=== PATIENT | female | born 1955 | race Caucasian/White ===

== ENCOUNTER 2017-06-21 20:28 | Observation (INO) | payer OTHER ==
[~2017-06-21] VITALS: Ht 161.3 cm; Wt 69.3 kg
[2017-06-21 20:30] VITALS: BP 135/66; PULSE 78; RESP 18; TEMP 98.4; O2SAT 97
[2017-06-21 20:50] VITALS: BP 133/61; PULSE 53; RESP 18; O2SAT 97
[2017-06-21 20:54] LABS: AUTOMATED NEUTROPHIL # 3.9 TH/MM3 (1.8-7.7); BASOPHIL # 0.1 TH/MM3 (0-0.2); BASOPHIL % 0.8 % (0.0-2.0); EOSINOPHIL # 0.3 TH/MM3 (0-0.4); EOSINOPHIL % 3.5 % (0.0-4.0); HEMATOCRIT 37.2 % (35.0-46.0); HEMOGLOBIN 12.7 GM/DL (11.6-15.3); LYMPH % 35.8 % (9.0-44.0); LYMPHOCYTE # 2.7 TH/MM3 (1.0-4.8); MEAN CELL VOLUME 92.5 FL (80.0-100.0); MEAN CORPUSCULAR HEMOGLOBIN 31.5 PG (27.0-34.0); MEAN CORPUSCULAR HGB CONC 34.1 % (32.0-36.0); MONO % 7.9 % (0.0-8.0); MONOCYTE # 0.6 TH/MM3 (0-0.9); PLATELET COUNT 294 TH/MM3 (150-450); RED BLOOD COUNT 4.02 MIL/MM3 (4.00-5.30); RED CELL DISTRIBUTION WIDTH 12.9 % (11.6-17.2); WHITE BLOOD COUNT 7.6 TH/MM3 (4.0-11.0)
[2017-06-21] MEDS ORDERED: RANI150T PO (20:57)
[2017-06-21] MEDS ORDERED: VITA1000 PO (20:57)
[2017-06-21] MEDS ORDERED: VENL150C39 PO (20:57)
[2017-06-21] MEDS ORDERED: ATOR40TA16 PO (20:57)
[2017-06-21] MEDS ORDERED: CALC600C3 (20:57)
[2017-06-21] MEDS ORDERED: LITH300C2 PO (20:57)
[2017-06-21] MEDS ORDERED: ZIPR20CA13 PO (20:57)
[2017-06-21] MEDS ORDERED: ATOR20TA15 PO (20:58)
[2017-06-21] MEDS ORDERED: LEVO25TA4 PO (21:00)
[2017-06-21 21:02] LABS: CHLORIDE 107 MEQ/L (98-107); SODIUM (NA) 141 MEQ/L (136-145)
[2017-06-21] MEDS ORDERED: ASPI81TA81 PO (21:04)
[2017-06-21 21:05] LABS: CALCIUM 8.9 MG/DL (8.5-10.1)
[2017-06-21 21:06] LABS: ALBUMIN 3.6 GM/DL (3.4-5.0); BICARBONATE 26.6 MEQ/L (21.0-32.0); BLOOD UREA NITROGEN 12 MG/DL (7-18); GLUCOSE,RANDOM 102 MG/DL (74-106)
[2017-06-21 21:08] LABS: PROTHROMBIN TIME - PATIENT 9.8 SEC (9.8-11.6)
[2017-06-21 21:09] LABS: ALT (GPT) 18 U/L (10-53); AST (GOT) 13 U/L (15-37); GLOMERULAR FILTRATION RATE 50 ML/MIN (>89)
[2017-06-21 21:10] LABS: TOTAL BILIRUBIN ADULT 0.2 MG/DL (0.2-1.0); TOTAL PROTEIN 7.2 GM/DL (6.4-8.2)
[2017-06-21 21:12] LABS: ALKALINE PHOSPHATASE 72 U/L (45-117)
[2017-06-21 21:14] LABS: TROPONIN I LESS THAN 0.02 NG/ML (0.02-0.05)
--- NOTE | 2017-06-21 21:16 | PD ---
HPI Chief Complaint: Numbness/Tingling Time Seen by Provider: 20:43 Travel History International Travel<30 days: No Contact w/Intl Traveler<30days: No Traveled to known affect area: No History of Present Illness HPI Patient 62-year-old female presents emergency department for numbness and tingling of her right upper and right lower extremity as well as some weakness prior to arrival. Patient started with the symptoms approximately an hour prior to arrival. No nausea no vomiting no headache no blurred vision, states she was having trouble finding some words initially. Symptoms are nearly resolved on arrival the patient only has some numbness and tingling in the right side of her face, states this is never happened to her before. Symptoms moderate, resolving, duration is an hour, associated signs and symptoms as above per [facility] Past Medical History Bipolar Disorder: Yes Diminished Hearing: Yes Fibromyalgia: Yes GERD: Yes Medical other: Yes (PTSD/CHRONIC FATIGUE SYND) Respiratory: Yes (BRONCHITIS) Tetanus Vaccination: Unknown Influenza Vaccination: Yes ?: Not LMP: 10-15 YRS PRIOR Past Surgical History Gynecologic Surgery: Yes Tonsillectomy: Yes Social History Alcohol Use: No Tobacco Use: No Substance Use: No Allergies-Medications (Allergen,Severity, Reaction): Coded Allergies: Penicillins (Verified Allergy, Severe, Rash, 06/21/17) gabapentin (Verified Adverse Reaction, Severe, Hallucinations, 06/21/17) codeine (Verified Adverse Reaction, Unknown, Nausea/Vomiting, 06/21/17) Reported Meds & Prescriptions Reported Meds & Active Scripts Active Reported Aspir-81 (Aspirin) 81 Mg Tabdr 162 Mg PO ONCE Levothyroxine (Levothyroxine Sodium) 25 Mcg Tab 0 PO DAILY Atorvastatin (Atorvastatin Calcium) 20 Mg Tab 20 Mg PO HS Vitamin D-1000 (Cholecalciferol) 1,000 Unit Tab 1,000 Units PO DAILY Calcium 600 + Vit D 400 Softgl (Calcium Carbonate/Vitamin D3) 600 Mg-400 Capsule Ranitidine (Ranitidine HCl) 150 Mg Tab 150 Mg PO DAILY [place] Carbonate 300 Mg Cap 450 Mg PO DAILY Venlafaxine ER 24 HR (Venlafaxine HCl) 150 Mg Cap 150 Mg PO DAILY Ziprasidone 20 Mg Cap 20 Mg PO BID Review of Systems Except as stated in HPI: all other systems reviewed are Neg Physical Exam Narrative GENERAL: Well-developed well-nourished no obvious SKIN: Focused skin assessment warm/dry. HEAD: Atraumatic. Normocephalic. EYES: Pupils equal and round. No scleral icterus. No injection or drainage. ENT: No nasal bleeding or discharge. Mucous membranes pink and moist. NECK: Trachea midline. No JVD. CARDIOVASCULAR: Regular rate and rhythm. No murmur appreciated. RESPIRATORY: No accessory muscle use. Clear to auscultation. Breath sounds equal bilaterally. GASTROINTESTINAL: Abdomen soft, non-tender, nondistended. Hepatic and splenic margins not palpable. MUSCULOSKELETAL: No obvious deformities. No clubbing. No cyanosis. No edema. NEUROLOGICAL: Awake and alert. Cranial nerves II through XII grossly intact and nonfocal, 5 out of 5 strength in all 4 extremities, cerebellar testing with [id number] and heel jackman examinations are negative, no nystagmus, extract movements intact, sensation is intact in all 4 extremities, DTRs 2+ bilateral equal at the brachial and patellar tendons. PSYCHIATRIC: Appropriate mood and affect; insight and judgment normal. Data Data Last Documented VS Vital Signs Date Time Temp Pulse Resp B/P (MAP) Pulse Ox O2 Delivery O2 Flow Rate FiO2 06/21/17 21:58 52 18 134/61 (85) 97 Room Air 06/21/17 20:30 98.4 Orders Orders Electrocardiogram (06/21/17 20:43) Complete Blood Count With Diff (06/21/17 20:43) Comprehensive Metabolic Panel (06/21/17 20:43) Creatine Kinase (Cpk) (06/21/17 20:43) Prothrombin Time / Inr (Pt) (06/21/17 20:43) Act Partial Throm Time (Ptt) (06/21/17 20:43) Troponin I (06/21/17 20:43) Thyroid Stimulating Hormone (06/21/17 20:43) Urinalysis - C+S If Indicated (06/21/17 20:43) Chest, Single Ap (06/21/17 20:43) Ct Brain W/O Iv Contrast(Rout) (06/21/17 20:43) Blood Glucose (06/21/17 20:43) Ecg Monitoring (06/21/17 20:43) Iv Access Insert/Monitor (06/21/17 20:43) Oximetry (06/21/17 20:43) Labs Laboratory Tests Test 06/21/17 20:38 06/21/17 21:50 White Blood Count 7.6 TH/MM3 Red Blood Count 4.02 MIL/MM3 Hemoglobin 12.7 GM/DL Hematocrit 37.2 % Mean Corpuscular Volume 92.5 FL Mean Corpuscular Hemoglobin 31.5 PG Mean Corpuscular Hemoglobin Concent 34.1 % Red Cell Distribution Width 12.9 % Platelet Count 294 TH/MM3 Mean Platelet Volume 8.0 FL Neutrophils (%) (Auto) 52.0 % Lymphocytes (%) (Auto) 35.8 % Monocytes (%) (Auto) 7.9 % Eosinophils (%) (Auto) 3.5 % Basophils (%) (Auto) 0.8 % Neutrophils # (Auto) 3.9 TH/MM3 Lymphocytes # (Auto) 2.7 TH/MM3 Monocytes # (Auto) 0.6 TH/MM3 Eosinophils # (Auto) 0.3 TH/MM3 Basophils # (Auto) 0.1 TH/MM3 CBC Comment DIFF FINAL Differential Comment Prothrombin Time 9.8 SEC Prothromb Time International Ratio 1.0 RATIO Activated Partial Thromboplast Time 25.2 SEC Blood Urea Nitrogen 12 MG/DL Creatinine 1.10 MG/DL Random Glucose 102 MG/DL Total Protein 7.2 GM/DL Albumin 3.6 GM/DL Calcium Level 8.9 MG/DL Alkaline Phosphatase 72 U/L Aspartate Amino Transf (AST/SGOT) 13 U/L Alanine Aminotransferase (ALT/SGPT) 18 U/L Total Bilirubin 0.2 MG/DL Sodium Level 141 MEQ/L Potassium Level 3.8 MEQ/L Chloride Level 107 MEQ/L Carbon Dioxide Level 26.6 MEQ/L Anion Gap 7 MEQ/L Estimat Glomerular Filtration Rate 50 ML/MIN Total Creatine Kinase 80 U/L Troponin I LESS THAN 0.02 NG/ML Thyroid Stimulating Hormone 3rd Gen 0.841 uIU/ML Urine Collection Type CLEAN CATCH Urine Color YELLOW Urine Turbidity CLEAR Urine pH 6.5 Urine Specific [place] 1.015 Urine Protein NEG mg/dL Urine Glucose (UA) NEG mg/dL Urine Ketones NEG mg/dL Urine Occult Blood NEG Urine Nitrite NEG Urine Bilirubin NEG Urine Urobilinogen 0.2 MG/DL Urine Leukocyte Esterase NEG Urine WBC 0-2 /hpf Urine Squamous Epithelial Cells 0-5 /hpf Urine Amorphous Sediment SMALL Urine Mucus OCC /lpf Microscopic Urinalysis Comment CULT NOT INDICATED MDM Medical Decision Making Medical Screen Exam Complete: Yes Emergency Medical Condition: Yes Differential Diagnosis TIA, stroke, somatoform disorder, electrolyte abnormality, intracranial hemorrhage. Narrative Course Patient was room to the emergency department, she is neurologically nonfocal for me in hand is a total NIH stroke scale of 0. No indication to stroke alert this patient at this time. She was observed in the emergency department during her workup and has had no return of her symptoms. Initial workup with CT head EKG basic labs reassuring. Discussed with the patient that certainly TIA is on the differential diagnosis and I recommended observation status for and she is agreeable. The patient was discussed with Dr. Osullivan who agrees Diagnosis Primary Impression: TIA (transient ischemic attack) Admitting Information Admitting Physician Requests: Observation Condition: Stable Martin Rodriguez MD Jun 21, 2017 21:16
--- NOTE | 2017-06-21 21:24 | RADRPT ---
EXAM DATE/TIME: 06/21/2017 20:50 [facility] COMPARISON: No previous studies available for comparison. INDICATIONS : TIA MEDICAL HISTORY : Gastroesophageal reflux disease. Fibromyalga. Bipolar. SURGICAL HISTORY : Tonsillectomy. ENCOUNTER: Initial ACUITY: 1 day PAIN SCORE: 0/10 LOCATION: Bilateral chest FINDINGS: A single view of the chest demonstrates the lungs to be symmetrically aerated without evidence of mas s, infiltrate or effusion. The cardiomediastinal contours are unremarkable. Osseous structures are intact. CONCLUSION: No acute disease. Guicho Watson MD on June 21, 2017 at 21:22 Board Certified Radiologist. This report was verified electronically.
[2017-06-21 21:49] VITALS: BP 125/52; PULSE 55; RESP 18; O2SAT 97
[2017-06-21 21:58] VITALS: BP 134/61; PULSE 52; RESP 18; O2SAT 97
[2017-06-21 22:06] LABS: BILIRUBIN, URINE NEG (NEG); BLOOD, URINE NEG (NEG); GLUCOSE,URINE NEG (NEG); KETONE, URINE NEG (NEG); NITRITE,URINE NEG (NEG); PH, URINE 6.5 (5.0-8.5); URINE COLOR YELLOW (YELLW/STRAW); URINE LEUKOCYTE ESTERASE NEG (NEG)
--- NOTE | 2017-06-21 22:06 | RADRPT ---
EXAM DATE/TIME: 06/21/2017 21:30 [facility] COMPARISON: No previous studies available for comparison. INDICATIONS : Right posterior cephalgia. Leaning to the right when she walks. Right arm weakness. Evaluate for trans ischemic attack. RADIATION DOSE: 56.51 CTDIvol (mGy) MEDICAL HISTORY : None SURGICAL HISTORY : None. ENCOUNTER: Initial ACUITY: 1 day PAIN SCALE: 5/10 LOCATION: Right cranial TECHNIQUE: Multiple contiguous axial images were obtained of the head. Using automated exposure control and adj ustment of the mA and/or kV according to patient size, radiation dose was kept as low as reasonably a chievable to obtain optimal diagnostic quality images. DICOM format image data is available electro nically for review and comparison. FINDINGS: CEREBRUM: The ventricles are normal for age. No evidence of midline shift, mass lesion, hemorrhage or acute in farction. No extra-axial fluid collections are seen. POSTERIOR FOSSA: The cerebellum and brainstem are intact. The 4th ventricle is midline. The cerebellopontine angle i s unremarkable. EXTRACRANIAL: The visualized portion of the orbits is intact. SKULL: The calvaria is intact. No evidence of skull fracture. CONCLUSION: No acute disease. Guicho Watson MD on June 21, 2017 at 22:03 Board Certified Radiologist. This report was verified electronically.
[2017-06-21 22:30] VITALS: BP 138/72; PULSE 53; RESP 18; O2SAT 97
[2017-06-21 22:42] LABS: AMORPHOUS SEDIMENT, URINE SMALL; MUCUS URINE OCC /lpf (OCC); SQUAMOUS EPITHELIAL CELL URINE 0-5 /hpf (0-5)
[2017-06-21 22:43] LABS: WBC, URINE 0-2 /hpf (0-5)
[2017-06-21] MEDS ORDERED: SENNOSIDES 8.6 MG TAB PO PRN (23:00)
[2017-06-21] MEDS ORDERED: BISACODYL 10 MG SUPP RECTAL PRN (23:00)
[2017-06-21] MEDS ORDERED: MAGNESIUM HYDROXIDE SUSP 30 ML CUP PO PRN (23:00)
[2017-06-21] MEDS ORDERED: SODIUM CHLORIDE 0.9% FLUSH 10 ML FLUSH IV FLUSH PRN (23:00)
[2017-06-21] MEDS ORDERED: ACETAMINOPHEN 325 MG TAB PO PRN (23:00)
[2017-06-21] MEDS ORDERED: ONDANSETRON HCL 4 MG/2 ML VIAL IVP PRN (23:00)
[2017-06-21] MEDS ORDERED: LACTULOSE SYRUP 20 GM/30 ML CUP PO PRN (23:00)
[2017-06-21 23:42] VITALS: BP 124/59; PULSE 52; RESP 18; O2SAT 97
[2017-06-22] VITALS (8 sets, daily range): BP systolic 104–131; BP diastolic 54–94; PULSE 50–59; RESP 16–18; TEMP 96.9–98; O2SAT 96–99
[2017-06-22] MEDS: SODIUM CHLOR 0.9% 1000 ML INJ 1,000 ML IV SCH ×3 (00:52→14:52)
--- NOTE | 2017-06-22 07:29 | HHI.HP ---
[facility] Admission Diagnosis TIA Diagnoses: Travel History International Travel<30 Days: No Contact w/Intl Traveler <30 Da: No Traveled to Known Affected Are: No History of Present Illness 62 year old right-handed female with h/o HLD, hypothyroidism, bipolar disorder, PTSD, and fibromyalgia presenting with right-sided weakness and difficulty ambulating. She was evaluated yesterday evening around 8:30 PM and symptom onset was approximately one hour prior and lasted about 30 minutes. She states since arriving to the ER her symptoms have completely resolved. She has a long history of frequent falling for which she follows with a neurologist and reportedly a full work-up has been nonrevealing. She states last night was different though because when she was walking she was trying to walk in a straight line but kept falling over to her right against the escoto. She states the right side of her body and face felt "funny" but cannot elaborate; she doesn 't think it was numb and she didn't feel any tingling. She states she felt weak and even when she was not walking she felt this sensation on the right side of her body. She nor her partner who witnessed this denies slurred speech, facial droop, or confusion. She denies seizures or syncopal episodes. She took two baby ASA yesterday evening but reports she doesn't take any aspirin on a regular basis. She states this morning she feels back to her normal self and is thinking clearly. Her symptoms have completely resolved. She is oriented to person, place , and time. She would like to go home if possible. She follows regularly with her PCP at the [facility]. Review of Systems Constitutional: DENIES: Fever, Chills Eyes: DENIES: Blurred vision, Vision loss, Double Vision Ears, nose, mouth, throat: DENIES: Running Nose Respiratory: DENIES: Cough, Shortness of breath Cardiovascular: DENIES: Chest pain, Palpitations, Syncope, Dyspnea on Exertion Gastrointestinal: DENIES: Abdominal pain, Diarrhea, Nausea, Vomiting Genitourinary: DENIES: Dysuria Musculoskeletal: DENIES: Back pain Integumentary: DENIES: Rash Neurologic: DENIES: Headache Psychiatric: DENIES: Confusion Past Family Social History Past Medical History Bipolar disorder PTSD Fibromyalgia Chronic fatigue syndrome Past Surgical History Tonsillectomy Hysterectomy Metal plate in arm Reported Medications Aspir-81 (Aspirin) 81 Mg Tabdr 162 Mg PO ONCE Levothyroxine (Levothyroxine Sodium) 25 Mcg Tab 0 PO DAILY Atorvastatin (Atorvastatin Calcium) 20 Mg Tab 20 Mg PO HS Vitamin D-1000 (Cholecalciferol) 1,000 Unit Tab 1,000 Units PO DAILY Calcium 600 + Vit D 400 Softgl (Calcium Carbonate/Vitamin D3) 600 Mg-400 Capsule Ranitidine (Ranitidine HCl) 150 Mg Tab 150 Mg PO DAILY [place] Carbonate 300 Mg Cap 450 Mg PO DAILY Venlafaxine ER 24 HR (Venlafaxine HCl) 150 Mg Cap 150 Mg PO DAILY Ziprasidone 20 Mg Cap 20 Mg PO BID Allergies: Coded Allergies: Penicillins (Verified Allergy, Severe, Rash, 06/21/17) gabapentin (Verified Adverse Reaction, Severe, Hallucinations, 06/21/17) codeine (Verified Adverse Reaction, Unknown, Nausea/Vomiting, 06/21/17) Active Ordered Medications Acetaminophen (Tylenol) 650 mg Q6H PRN PO; Start 06/21/17 at 23:00 Aspirin (Ecotrin Ec) 81 mg DAILY PO Last administered on 06/22/17at 08:29; Admin Dose 81 MG; Start 06/22/17 at 09:00 Atorvastatin Calcium (Lipitor) 20 mg HS PO; Start 06/22/17 at 21:00 Bisacodyl (Dulcolax Supp) 10 mg DAILY PRN RECTAL; Start 06/21/17 at 23:00 Famotidine (Pepcid) 20 mg DAILY PO Last administered on 06/22/17at 08:29; Admin Dose 20 MG; Start 06/22/17 at 09:00 Lactulose (Lactulose Liq) 30 ml DAILY PRN PO; Start 06/21/17 at 23:00 [place] Carbonate (Eskalith Sr) 450 mg DAILY PO; Start 06/22/17 at 09:00; Stop at 09:00; Status DC [place] Carbonate (Eskalith Sr) 450 mg DAILY PO; Start 06/22/17 at 09:00 Magnesium Hydroxide (Milk Of Magnesia Liq) 30 ml Q12H PRN PO; Start 06/21/17 at 23:00 Non-Formulary Medication 150 mg DAILY PO; Start 06/22/17 at 09:00; Status UNV Ondansetron HCl (Zofran Inj) 4 mg Q6H PRN IVP; Start 06/21/17 at 23:00 Senna/Docusate Sodium (Brenda-Colace) 1 tab BID PO Last administered on 06/22/17at 08:29; Admin Dose 1 TAB; Start 06/22/17 at 09:00 Sennosides (Senokot) 17.2 mg Q12H PRN PO; Start 06/21/17 at 23:00 Sodium Chloride 1,000 ml @ 100 mls/hr Q10H IV Last administered on 06/22/17at 00: 52; Admin Dose 100 MLS/HR; Start 06/21/17 at 22:56 Sodium Chloride (NS Flush) 2 ml BID IV FLUSH Last administered on 06/22/17at 08:27 ; Admin Dose 2 ML; Start 06/22/17 at 09:00 Sodium Chloride (NS Flush) 2 ml UNSCH PRN IV FLUSH; Start 06/21/17 at 23:00 Family History Mother had breast cancer Social History Lives with partner, Chitra, in a snf community Denies EtOH, tobacco, illicit drugs Physical Exam Vital Signs Vital Signs Date Time Temp Pulse Resp B/P (MAP) Pulse Ox O2 Delivery O2 Flow Rate FiO2 06/22/17 04:00 97.6 55 16 131/61 (84) 96 06/22/17 01:08 55 18 124/59 (80) 97 06/22/17 01:00 51 06/22/17 00:17 55 18 124/59 (80) 97 06/21/17 23:42 52 18 124/59 (80) 97 Room Air 06/21/17 22:30 53 18 138/72 (94) 97 06/21/17 21:58 52 18 134/61 (85) 97 Room Air 06/21/17 21:49 55 18 125/52 (76) 97 Room Air 06/21/17 20:50 53 18 133/61 (85) 97 Room Air 06/21/17 20:30 98.4 78 18 135/66 (89) 97 Physical Exam GENERAL: Well-nourished, well-developed female laying comfortably in bed in no apparent distress. SKIN: No rashes, ecchymoses or lesions. Cool and dry. HEENT: Atraumatic. Normocephalic. No temporal or scalp tenderness Pupils equal round and reactive. Extraocular motions intact. No scleral icterus. No injection or drainage. Nose without bleeding, purulent drainage or septal hematoma. Throat without erythema, tonsillar hypertrophy or exudate. Uvula midline. Airway patent. NECK: Trachea midline. No JVD or lymphadenopathy. Supple, nontender, no meningeal signs. CARDIOVASCULAR: Regular rate and rhythm without murmurs, gallops, or rubs. RESPIRATORY: Clear to auscultation. Breath sounds equal bilaterally. No wheezes , rales, or rhonchi. GASTROINTESTINAL: Abdomen soft, nontender, nondistended. No hepatosplenomegaly or palpable masses. No guarding. MUSCULOSKELETAL: Extremities without clubbing, cyanosis, or edema. No joint tenderness, effusion, or edema noted. No calf tenderness. Negative Homans sign bilaterally. NEUROLOGICAL: Awake and alert. Oriented x 4. Cranial nerves II through XII intact. Motor and sensory grossly within normal limits. Five out of 5 muscle strength in all muscle groups. Normal speech. No pronator drift. Able to perform rapid alternating movements and heel-jackman testing. Negative Romberg. Laboratory Laboratory Tests Test 06/21/17 20:38 06/21/17 21:50 White Blood Count 7.6 Red Blood Count 4.02 Hemoglobin 12.7 Hematocrit 37.2 Mean Corpuscular Volume 92.5 Mean Corpuscular Hemoglobin 31.5 Mean Corpuscular Hemoglobin Concent 34.1 Red Cell Distribution Width 12.9 Platelet Count 294 Mean Platelet Volume 8.0 Neutrophils (%) (Auto) 52.0 Lymphocytes (%) (Auto) 35.8 Monocytes (%) (Auto) 7.9 Eosinophils (%) (Auto) 3.5 Basophils (%) (Auto) 0.8 Neutrophils # (Auto) 3.9 Lymphocytes # (Auto) 2.7 Monocytes # (Auto) 0.6 Eosinophils # (Auto) 0.3 Basophils # (Auto) 0.1 CBC Comment DIFF FINAL Differential Comment Prothrombin Time 9.8 Prothromb Time International Ratio 1.0 Activated Partial Thromboplast Time 25.2 Blood Urea Nitrogen 12 Creatinine 1.10 Random Glucose 102 Total Protein 7.2 Albumin 3.6 Calcium Level 8.9 Alkaline Phosphatase 72 Aspartate Amino Transf (AST/SGOT) 13 Alanine Aminotransferase (ALT/SGPT) 18 Total Bilirubin 0.2 Sodium Level 141 Potassium Level 3.8 Chloride Level 107 Carbon Dioxide Level 26.6 Anion Gap 7 Estimat Glomerular Filtration Rate 50 Total Creatine Kinase 80 Troponin I LESS THAN 0.02 Thyroid Stimulating Hormone 3rd Gen 0.841 Urine Collection Type CLEAN CATCH Urine Color YELLOW Urine Turbidity CLEAR Urine pH 6.5 Urine Specific [place] 1.015 Urine Protein NEG Urine Glucose (UA) NEG Urine Ketones NEG Urine Occult Blood NEG Urine Nitrite NEG Urine Bilirubin NEG Urine Urobilinogen 0.2 Urine Leukocyte Esterase NEG Urine WBC 0-2 Urine Squamous Epithelial Cells 0-5 Urine Amorphous Sediment SMALL Urine Mucus OCC Microscopic Urinalysis Comment CULT NOT INDICATED Result Diagram: 06/21/17203706/21/172037 Imaging Brain MRI 06/22/17 0000 Signed Impressions: Service Date/Time: Thursday, June 22, 2017 09:41 - CONCLUSION: No acute disease. Tyra Adkins MD Head CT 06/21/172042 Signed Impressions: Service Date/Time: Wednesday, June 21, 2017 21:30 - CONCLUSION: No acute disease. Guicho Watson MD Chest X-Ray 06/21/172042 Signed Impressions: Service Date/Time: Wednesday, June 21, 2017 20:50 - CONCLUSION: No acute disease. MD Adriel Robledo VTE Risk Assessment Caprini VTE Risk Assessment: Mod/High Risk (score >= 2) Caprini Risk Assessment Model Point Value = 1 Point Value = 2 Point Value = 3 Point Value = 5 Age 41-60 Minor surgery BMI > 25 kg/m2 Swollen legs Varicose veins or History of unexplained or recurrent spontaneous Oral contraceptives or hormone replacement Sepsis (< 1 month) Serious lung disease, including pneumonia (< 1 month) Abnormal pulmonary function Acute myocardial infarction Congestive heart failure (< 1 month) History of inflammatory bowel disease Medical patient at bed rest Age 61-74 Arthroscopic surgery Major open surgery (> 45 min) Laparoscopic surgery (> 45 min) Malignancy Confined to bed (> 72 hours) Immobilizing plaster cast Central venous access Age >= 75 History of VTE Family history of VTE Factor V Leiden Prothrombin [id number] Lupus anticoagulant Anticardiolipin antibodies Elevated serum homocysteine Heparin-induced thrombocytopenia Other congenital or acquired thrombophilia Stroke (< 1 month) Elective arthroplasty Hip, pelvis, or leg fracture Acute spinal cord injury (< 1 month) Prophylaxis Regimen Total Risk Factor Score Risk Level Prophylaxis Regimen 0-1 Low Early ambulation 2 Moderate Order ONE of the following: *Sequential Compression Device (SCD) *Heparin 5000 units SQ BID 3-4 Higher Order ONE of the following medications: *Heparin 5000 units SQ TID *Enoxaparin/Lovenox 40 mg SQ daily (WT < 150 kg, CrCl > 30 mL/min) *Enoxaparin/Lovenox 30 mg SQ daily (WT < 150 kg, CrCl > 10-29 mL/min) *Enoxaparin/Lovenox 30 mg SQ BID (WT < 150 kg, CrCl > 30 mL/min) AND/OR *Sequential Compression Device (SCD) 5 or more Highest Order ONE of the following medications: *Heparin 5000 units SQ TID (Preferred with Epidurals) *Enoxaparin/Lovenox 40 mg SQ daily (WT < 150 kg, CrCl > 30 mL/min) *Enoxaparin/Lovenox 30 mg SQ daily (WT < 150 kg, CrCl > 10-29 mL/min) *Enoxaparin/Lovenox 30 mg SQ BID (WT < 150 kg, CrCl > 30 mL/min) AND *Sequential Compression Device (SCD) Assessment and Plan Problem List: (1) TIA (transient ischemic attack) ICD Code: G45.9 - Transient cerebral ischemic attack, unspecified Status: Acute Assessment and Plan 62 year old female with bipolar, PTSD, and fibromyalgia presenting with right-sided weakness. 1. Right-sided weakness, likely TIA since symptoms resolved in <24 hours - CT and MRI head negative for ischemia - 2D echo and carotid U/S ordered - Lipid panel, A1c, lithium level pending - TSH, ESR, troponin, and electrolytes WNL - On a statin at home which should be continued - Start ASA 81 mg daily 2. Frequent falls - Evaluated by neuro as an outpatient but she has never done PT - PT to evaluate and provide D/C reccs 3. Chronic medical problems not being acutely addressed in the hospital: - Fibromyalgia - PTSD: resume home Ziprasidone - Bipolar disorder: resume home Peter - GERD: resume home Zantac FEN: - Heart healthy diet DVT prophylaxis: Heparin 5000 units while in the hospital Disposition: Hopefully home today since symptoms resolved and imaging of the head negative; can be discharged once carotid U/S and echo done Code Status FULL Discussed Condition With Patient Mago Quiroz MD Jun 22, 2017 07:29
[2017-06-22 07:48] LABS: AUTOMATED NEUTROPHIL # 3.2 TH/MM3 (1.8-7.7); BASOPHIL % 0.5 % (0.0-2.0); EOSINOPHIL # 0.2 TH/MM3 (0-0.4); EOSINOPHIL % 4.2 % (0.0-4.0); HEMATOCRIT 35.7 % (35.0-46.0); HEMOGLOBIN 12.2 GM/DL (11.6-15.3); LYMPH % 34.2 % (9.0-44.0); MEAN CELL VOLUME 92.5 FL (80.0-100.0); MEAN CORPUSCULAR HEMOGLOBIN 31.7 PG (27.0-34.0); MEAN CORPUSCULAR HGB CONC 34.2 % (32.0-36.0); MEAN PLATELET VOLUME 8.1 FL (7.0-11.0); MONO % 7.3 % (0.0-8.0); MONOCYTE # 0.4 TH/MM3 (0-0.9); NEUT % 53.8 % (16.0-70.0); PLATELET COUNT 271 TH/MM3 (150-450); RED BLOOD COUNT 3.85 MIL/MM3 (4.00-5.30); RED CELL DISTRIBUTION WIDTH 12.5 % (11.6-17.2); WHITE BLOOD COUNT 5.8 TH/MM3 (4.0-11.0)
[2017-06-22 08:10] LABS: CHLORIDE 111 MEQ/L (98-107); SODIUM (NA) 143 MEQ/L (136-145)
[2017-06-22 08:16] LABS: CALCIUM 8.5 MG/DL (8.5-10.1)
[2017-06-22 08:17] LABS: ALBUMIN 3.2 GM/DL (3.4-5.0); BICARBONATE 25.7 MEQ/L (21.0-32.0); BLOOD UREA NITROGEN 12 MG/DL (7-18); GLUCOSE,RANDOM 85 MG/DL (74-106)
[2017-06-22 08:19] LABS: ALT (GPT) 17 U/L (10-53); CREATININE 0.96 MG/DL (0.50-1.00); GLOMERULAR FILTRATION RATE 59 ML/MIN (>89)
[2017-06-22 08:21] LABS: TOTAL BILIRUBIN ADULT 0.3 MG/DL (0.2-1.0); TOTAL PROTEIN 6.5 GM/DL (6.4-8.2)
[2017-06-22 08:22] LABS: AST (GOT) 9 U/L (15-37)
[2017-06-22 08:23] LABS: ALKALINE PHOSPHATASE 65 U/L (45-117)
[2017-06-22] MEDS: SODIUM CHLORIDE 0.9% FLUSH 10 ML FLUSH IV FLUSH SCH ×2 (08:27→20:47)
[2017-06-22] MEDS: ASPIRIN EC 81 MG TABEC PO SCH (08:29)
[2017-06-22] MEDS: DOCUSATE SODIUM 50 MG/SENNA 8.6 MG TAB PO SCH ×2 (08:29→20:45)
[2017-06-22] MEDS: FAMOTIDINE 20 MG TAB PO SCH (08:29)
[2017-06-22] MEDS: LITHIUM CARBONATE 450 MG CONTROLLED RELEASE TAB PO SCH (08:29)
[2017-06-22] MEDS ORDERED: NON-FORMULARY DRUG (Ranitidine 150 MG) PO SCH (09:00)
[2017-06-22] MEDS ORDERED: LITHIUM CARBONATE 450 MG CONTROLLED RELEASE TAB PO SCH (09:00)
--- NOTE | 2017-06-22 09:51 | RADRPT ---
EXAM DATE/TIME: 06/22/2017 09:41 [facility] COMPARISON: No previous studies available for comparison. INDICATIONS : Right sided weakness. MEDICAL HISTORY : None. SURGICAL HISTORY : Tonsillectomy. ORIF ENCOUNTER: Initial ACUITY: 1 day PAIN SCORE: 0/10 LOCATION: cranial TECHNIQUE: Multiplanar, multisequence MRI of the brain was performed without contrast. FINDINGS: CEREBRUM: The ventricles are normal for age. No evidence of midline shift, mass lesion, hemorrhage or acute in farction. No extraaxial fluid collections are seen. The pituitary gland and suprasellar cistern are normal in configuration. WHITE MATTER: No significant signal abnormalities are seen in the white matter. POSTERIOR FOSSA: The cerebellum and brainstem are intact. The 4th ventricle is midline. The cerebellopontine angle is unremarkable. The cerebellar tonsils are normal in position. DIFFUSION IMAGING: No focal areas of restricted diffusion are seen. No evidence of acute infarction. EXTRACRANIAL: The visualized portions of the orbits and paranasal sinuses are unremarkable. CONCLUSION: No acute disease. Tyra Adkins MD on June 22, 2017 at 9:47 Board Certified Radiologist. This report was verified electronically.
[2017-06-22] MEDS ORDERED: ASPI-183 PO (10:27)
[2017-06-22] MEDS ORDERED: ECASA81 PO (11:04)
[2017-06-22 11:59] LABS: CHOLESTEROL 117 MG/DL (120-200); TRIGLYCERIDES 78 MG/DL (42-150)
[2017-06-22 12:01] LABS: CHOLESTEROL/ HDL RATIO 2.08 RATIO; HDL CHOLESTEROL 56.1 MG/DL (40.0-60.0); LDL CHOLESTEROL 45 MG/DL (0-99)
--- NOTE | 2017-06-22 12:54 | RADRPT ---
EXAM DATE/TIME: 06/22/2017 12:15 [facility] COMPARISON: No previous studies available for comparison. INDICATIONS : Transient ischemic attack. MEDICAL HISTORY : Gastroesophageal reflux disease. Hearing loss. Fibromyalgia. Bipolar disorder. PTSD. Bronchitis. SURGICAL HISTORY : Tonsillectomy. Hysterectomy. ENCOUNTER: Initial ACUITY: 2 days PAIN SCORE: 0/10 LOCATION: Bilateral neck PEAK SYSTOLIC VELOCITIES (cm/sec): ICA/CCA RATIO: Right: 1.2 Left: 1.5 ICA: Right: 112 Left: 146 CCA: Right: 92 Left: 95 ECA: Right: 107 Left: 111 Right: 43 antegrade Left: 71 antegrade Elevated flow velocities and ICA/CCA ratios have been found to correlate with increased degrees of vessel stenosis, calculated as percentage of diameter relative to a normal segment of distal ICA/CCA FINDINGS: RIGHT CAROTID: No significant stenosis is visualized. The waveforms are within normal limits. LEFT CAROTID: No significant stenosis is visualized. The waveforms are within normal limits. VERTEBRAL ARTERIES: Antegrade flow is seen in both vertebral arteries. MISCELLANEOUS: None. CONCLUSION: 1. Mild visible plaque in the common carotid arteries bilaterally. No hemodynamically significant madelaine nosis. Vertebral artery flow antegrade. Favio Black MD on June 22, 2017 at 12:51 Board Certified Radiologist. This report was verified electronically.
[2017-06-22 13:01] LABS: HEMOGLOBIN A1C 5.1 % (4.3-6.0)
--- NOTE | 2017-06-22 17:10 | EKG ---
Date Performed: 06/21/2017 Time Performed: 20:52:13 PTAGE: 62 years EKG: SINUS BRADYCARDIA NONSPECIFIC ST & T-WAVE ABNORMALITY BORDERLINE ECG NO PREVIOUS TRACING DOCTOR: Jorje Ugarte Interpretating Date/Time 06/22/2017 17:08:47
--- NOTE | 2017-06-22 18:29 | ECHRPT ---
Indication: CVA/TIA CONCLUSIONS Normal left ventricular size. Mild concentric left ventricular hypertrophy. The left ventricular systolic function is low normal with an estimated ejection fraction in the rang e of 50- 55%. Trace mitral valve regurgitation. There is trace tricuspid valve regurgitation. The estimated pulmonary arterial pressure is 14mmHg. BP: / HR: Rhythm: MEASUREMENTS (Male / Female) Normal Values Technical Quality: 2D ECHO LV Diastolic Diameter PLAX 4.5 cm 4.2 - 5.9 / 3.9 - 5.3 cm LV Systolic Diameter PLAX 3.5 cm IVS Diastolic Thickness 1.4 cm 0.6 - 1.0 / 0.6 - 0.9 cm LVPW Diastolic Thickness 1.1 cm 0.6 - 1.0 / 0.6 - 0.9 cm LV Relative Wall Thickness 0.6 RV Internal Dim ED PLAX 1.9 cm LA Systolic Diameter LX 2.8 cm 3.0 - 4.0 / 2.7 - 3.8 cm DOPPLER Mitral E Point Velocity 84.4 cm/s Mitral A Point Velocity 33.6 cm/s Mitral E to A Ratio 2.5 TR Peak Velocity 151.0 cm/s TR Peak Gradient 9.1 mmHg Right Atrial Pressure 5.0 mmHg Pulmonary Artery Systolic Pressu 14.1 mmHg Right Ventricular Systolic Press 14.1 mmHg FINDINGS LEFT VENTRICLE Normal left ventricular size. Mild concentric left ventricular hypertrophy. The left ventricular systolic function is low normal with an estimated ejection fraction in the rang e of 50- 55%. RIGHT VENTRICLE Normal right ventricular size and systolic function. LEFT ATRIUM The left atrial size is normal. RIGHT ATRIUM The right atrial size is normal. ATRIAL SEPTUM Normal atrial septal thickness without atrial level shunting by limited color doppler interrogation. AORTA The aortic root and proximal ascending aorta are normal in size on limited imaging. MITRAL VALVE Trace mitral valve regurgitation. AORTIC VALVE Trileaflet aortic valve. No aortic valve stenosis or regurgitation. TRICUSPID VALVE There is trace tricuspid valve regurgitation. The estimated pulmonary arterial pressure is 14mmHg. PULMONARY VALVE No pulmonary valve regurgitation or stenosis. VESSELS The inferior vena cava is normal in size. PERICARDIUM No pericardial effusion. Erick Pham MD, FACC (Electronically Signed) Final Date:22 June 2017 18:28
[2017-06-22] MEDS: ZIPRASIDONE HCL 20 MG CAP PO SCH (20:45)
[2017-06-22] MEDS: HEPARIN SODIUM - SQ 10,000 UNITS/ML VIAL SQ SCH (20:46)
[2017-06-22] MEDS ORDERED: ATORVASTATIN 20 MG TAB PO SCH (21:00)
[2017-06-22] MEDS: VENLAFAXINE HCL XR 75 MG CAP PO SCH (22:19)
[2017-06-23] VITALS: BP 112/59; PULSE 54; RESP 16; TEMP 96.4; O2SAT 99
[2017-06-23 04:00] VITALS: BP 119/62; PULSE 50; RESP 16; TEMP 96.8; O2SAT 98
[2017-06-23] MEDS: SODIUM CHLOR 0.9% 1000 ML INJ 1,000 ML IV SCH (04:56)
[2017-06-23 08:00] VITALS: BP 122/62; PULSE 48; RESP 18; TEMP 96.2; O2SAT 96
[2017-06-23] MEDS: LITHIUM CARBONATE 450 MG CONTROLLED RELEASE TAB PO SCH (09:00)
[2017-06-23] MEDS ORDERED: VENLAFAXINE HCL XR 75 MG CAP PO SCH (09:00)
[2017-06-23] MEDS: FAMOTIDINE 20 MG TAB PO SCH (09:00)
[2017-06-23] MEDS: VENLAFAXINE HCL XR 75 MG CAP PO SCH (09:00)
[2017-06-23] MEDS: ZIPRASIDONE HCL 20 MG CAP PO SCH (09:00)
[2017-06-23] MEDS: DOCUSATE SODIUM 50 MG/SENNA 8.6 MG TAB PO SCH (09:26)
[2017-06-23] MEDS: ASPIRIN EC 81 MG TABEC PO SCH (09:27)
[2017-06-23] MEDS: HEPARIN SODIUM - SQ 10,000 UNITS/ML VIAL SQ SCH (09:27)
[2017-06-23] MEDS: SODIUM CHLORIDE 0.9% FLUSH 10 ML FLUSH IV FLUSH SCH (09:28)
[2017-06-23 12:00] VITALS: BP 118/65; PULSE 55; RESP 16; TEMP 97.7; O2SAT 98
--- NOTE | 2017-06-23 15:14 | HHI.PR ---
Objective Vitals Vital Signs Date Time Temp Pulse Resp B/P (MAP) Pulse Ox O2 Delivery O2 Flow Rate FiO2 06/23/17 12:00 97.7 55 16 118/65 (82) 98 06/23/17 08:00 96.2 48 18 122/62 (82) 96 06/23/17 04:00 96.8 50 16 119/62 (81) 98 06/23/17 00:00 96.4 54 16 112/59 (76) 99 06/22/17 20:00 58 06/22/17 20:00 96.9 59 16 126/66 (86) 99 06/22/17 16:00 97.0 57 16 124/94 (104) 97 I/O 06/22/17 06/22/17 06/22/17 06/23/17 06/23/17 06/23/17 07:00 15:00 23:00 07:00 15:00 23:00 Intake Total 1000 ml 600 ml 120 ml Balance 1000 ml 600 ml 120 ml Intake Oral 600 ml 120 ml IV Total 1000 ml # Voids 1 4 3 # Bowel Movements 0 Result Diagram: 06/22/17 0706 06/22/17 0706 A/P Problem List: (1) TIA (transient ischemic attack) ICD Code: G45.9 - Transient cerebral ischemic attack, unspecified Status: Cherie Farnsworth MD Jun 23, 2017 15:14
[2017-06-23] MEDS ORDERED: PLAV75TA29 PO (15:34)
--- NOTE | 2017-06-23 15:34 | HHI.PR ---
Subjective Remarks Pt feels well. No nausea or vomiting. Denies any pain, weakness, numbness. Would like to go home Objective Vitals Vital Signs Date Time Temp Pulse Resp B/P (MAP) Pulse Ox O2 Delivery O2 Flow Rate FiO2 06/23/17 12:00 97.7 55 16 118/65 (82) 98 06/23/17 08:00 96.2 48 18 122/62 (82) 96 06/23/17 04:00 96.8 50 16 119/62 (81) 98 06/23/17 00:00 96.4 54 16 112/59 (76) 99 06/22/17 20:00 58 06/22/17 20:00 96.9 59 16 126/66 (86) 99 06/22/17 16:00 97.0 57 16 124/94 (104) 97 I/O 06/22/17 06/22/17 06/22/17 06/23/17 06/23/17 06/23/17 07:00 15:00 23:00 07:00 15:00 23:00 Intake Total 1000 ml 600 ml 120 ml Balance 1000 ml 600 ml 120 ml Intake Oral 600 ml 120 ml IV Total 1000 ml # Voids 1 4 3 # Bowel Movements 0 Result Diagram: 06/22/17 0706/22/17 0706 Imaging Last Impressions Carotid Artery Ultrasound 06/22/17 0000 Signed Impressions: Service Date/Time: Thursday, June 22, 2017 12:15 - CONCLUSION: 1. Mild visible plaque in the common carotid arteries bilaterally. No hemodynamically significant stenosis. Vertebral artery flow antegrade. Favio Black MD Brain MRI 06/22/17 0000 Signed Impressions: Service Date/Time: Thursday, June 22, 2017 09:41 - CONCLUSION: No acute disease. Tyra Adkins MD Head CT [id number] Signed Impressions: Service Date/Time: Wednesday, June 21, 2017 21:30 - CONCLUSION: No acute disease. Guicho Watson MD Chest X-Ray [id number] Signed Impressions: Service Date/Time: Wednesday, June 21, 2017 20:50 - CONCLUSION: No acute disease. Guicho Watson MD Objective Remarks GENERAL: ambulating in room CARDIOVASCULAR: Regular rate and rhythm without murmurs RESPIRATORY: Clear to auscultation. Breath sounds equal bilaterally. No wheezes GASTROINTESTINAL: Abdomen soft, nontender, nondistended. No No guarding. MUSCULOSKELETAL: Extremities without edema. NEUROLOGICAL: Awake and alert. ambulating in room after putting her boots on. Normal speech. A/P Problem List: (1) TIA (transient ischemic attack) ICD Code: G45.9 - Transient cerebral ischemic attack, unspecified Status: Acute Assessment and Plan 62 year old female with bipolar, PTSD, and fibromyalgia presenting with right-sided weakness. 1. TIA w Right-sided weakness which resolved <24hrs. - CT and MRI head negative for ischemia - 2D echo and carotid U/S neg - Lipid panel w TG 78, LDL 45, HDL 56, pt on statin, continue. HbA1c 5.1, lithium level wnl - TSH, ESR, troponin, and electrolytes WNL - Pt was on ASA already, will switch her to plavix instead. Pt does have a neurologist she saw in the past and can f/u w him as an outpatient. 2. Frequent falls - Evaluated by neuro as an outpatient but she has never done PT - PT to evaluated and no outpatient PT recommended Discharge Planning d/c home today pt to f/u w neurology and PCP in 1-2 weeks script for plavix no restrictions condition stable Cherie Damian MD Jun 23, 2017 15:34
== END 2017-06-23 15:44 | disposition home or self-care (01) ==
LOC: PHED 20:28 → PHEDA 23:05 → PH3A 06-22 00:26
PROVIDERS: ADMIT Hospitalist; ATTEND Hospitalist
DX: G45.9 Transient cerebral ischemic attack, unspecified (principal); R53.1 Weakness; M79.7 Fibromyalgia; E78.5 Hyperlipidemia, unspecified; E03.9 Hypothyroidism, unspecified; F31.9 Bipolar disorder, unspecified; R29.700 NIHSS score 0; F43.10 Post-traumatic stress disorder, unspecified; R29.6 Repeated falls; K21.9 Gastro-esophageal reflux disease without esophagitis; H91.90 Unspecified hearing loss, unspecified ear; J40 Bronchitis, not specified as acute or chronic; R20.2 Paresthesia of skin
CPT/HCPCS: 70450; 70551; 71045; 80053; 80061; 80178; 81001; 82550; 83036; 84443; 84484; 85025; 85610; 85652; 85730; 93005; 93306; 93880; 96360; 96372; 97161; 99285; G0378; G8987; G8988; G8989; J1644; J7030